=== PATIENT | male | born 1995 | race Caucasian/White ===

== ENCOUNTER 2017-01-31 21:58 | Emergency (ER) | payer SELFPAY ==
[~2017-01-31 21:58] MED LIST: Z.0.NO CURRENT MEDS
[2017-01-31 22:04] VITALS: BP 117/78; PULSE 68; RESP 16; TEMP 97.6; O2SAT 99
[2017-01-31] MEDS ORDERED: ONDANSETRON HCL 4 MG/2 ML VIAL ONE (22:19)
[2017-01-31 22:25] VITALS: RESP 16; O2SAT 98
--- NOTE | 2017-01-31 22:26 | PD ---
HPI Chief Complaint: OD/ Ingestion Time Seen by Provider: 22:17 Travel History International Travel<30 days: No Contact w/Intl Traveler<30days: No Traveled to known affect area: No History of Present Illness HPI 21-year-old male brought in by ambulance after an opioid overdose. The patient was with his friends when he started to become less responsive. EMS was called and they noted that he was minimally responsive to painful stimuli, had a respiratory rate of 8, pinpoint pupils. The patient's friends had told the medics that he had taken 30 mg of Roxicodone. They established an IV and administered 0.4 mg of Narcan with significant improvement in mental status. Upon arrival to the emergency department the patient is awake and alert. He is nauseous and is vomiting/dry heaving into an emesis basin. He denies using any other drugs tonight. Denies alcohol use tonight. He denies suicidal or homicidal ideation. He reports that he ingested the Roxicodone tablet. PFS Past Medical History Medical History: Denies Significant Hx ADHD: No Cancer: No Cardiovascular Problems: No Diabetes: No Diminished Hearing: No Psychiatric: No Migraines: Yes (couple times a week) Seizures: No Thyroid Disease: No Ulcer: No Tetanus Vaccination: < 5 Years Influenza Vaccination: Yes Past Surgical History Surgical History: No Previous Surgery Other Surgery: No Social History Alcohol Use: Yes (EVERY WEEKEND) Tobacco Use: Yes (1PPD) Substance Use: Yes (ANYTHING) Allergies-Medications (Allergen,Severity, Reaction): Coded Allergies: No Known Allergies (Unverified , 01/31/17) Reported Meds & Prescriptions Reported Meds & Active Scripts Active No Active Prescriptions or Reported Medications Review of Systems Except as stated in HPI: all other systems reviewed are Neg Physical Exam Narrative GENERAL: Well-developed, well-nourished, awake, alert, retching into an emesis basin, no acute distress. SKIN: Warm and dry. No rash. HEAD: Atraumatic. Normocephalic. EYES: Pupils equal and round. No scleral icterus. No injection or drainage. ENT: No nasal bleeding or discharge. Mucous membranes pink and moist. NECK: Trachea midline. No JVD. No nuchal rigidity. CARDIOVASCULAR: Regular rate and rhythm. RESPIRATORY: No accessory muscle use. Clear to auscultation. Breath sounds equal bilaterally. GASTROINTESTINAL: Abdomen soft, non-tender, nondistended. MUSCULOSKELETAL: No obvious deformities. No clubbing. No cyanosis. No edema. NEUROLOGICAL: Awake and alert. No obvious cranial nerve deficits. Motor grossly within normal limits. Normal speech. PSYCHIATRIC: Appropriate mood and affect; insight and judgment normal. Data Data Last Documented VS Vital Signs Date Time Temp Pulse Resp B/P Pulse Ox O2 Delivery O2 Flow Rate FiO2 01/31/17 22:25 16 98 Room Air 01/31/17 22:04 97.6 68 117/78 Orders Ondansetron Inj (Zofran Inj) (01/31/17 22:19) Complete Blood Count With Diff (01/31/17 22:20) Comprehensive Metabolic Panel (01/31/17 22:20) Iv Access Insert/Monitor (01/31/17 22:20) Ecg Monitoring (01/31/17 22:20) Oximetry (01/31/17 22:20) Sodium Chloride 0.9% Flush (Ns Flush) (01/31/17 22:30) Drug Screen, Random Urine (01/31/17 22:20) Alcohol (Ethanol) (01/31/17 22:20) Salicylates (Aspirin) (01/31/17 22:20) Tylenol (Acetaminophen) (01/31/17 22:20) Ondansetron Inj (Zofran Inj) (01/31/17 22:30) Potassium Chloride (Kcl) (01/31/17 23:15) Labs Laboratory Tests Test 01/31/17 01/31/17 22:25 23:30 White Blood Count 12.5 TH/MM3 Red Blood Count 4.80 MIL/MM3 Hemoglobin 14.4 GM/DL Hematocrit 41.7 % Mean Corpuscular Volume 86.9 FL Mean Corpuscular Hemoglobin 30.0 PG Mean Corpuscular Hemoglobin 34.6 % Concent Red Cell Distribution Width 12.6 % Platelet Count 263 TH/MM3 Mean Platelet Volume 7.2 FL Neutrophils (%) (Auto) 73.9 % Lymphocytes (%) (Auto) 18.2 % Monocytes (%) (Auto) 6.5 % Eosinophils (%) (Auto) 1.1 % Basophils (%) (Auto) 0.3 % Neutrophils # (Auto) 9.2 TH/MM3 Lymphocytes # (Auto) 2.3 TH/MM3 Monocytes # (Auto) 0.8 TH/MM3 Eosinophils # (Auto) 0.1 TH/MM3 Basophils # (Auto) 0.0 TH/MM3 CBC Comment DIFF FINAL Differential Comment Sodium Level 141 MEQ/L Potassium Level 3.2 MEQ/L Chloride Level 102 MEQ/L Carbon Dioxide Level 29.6 MEQ/L Anion Gap 9 MEQ/L Blood Urea Nitrogen 19 MG/DL Creatinine 1.00 MG/DL Estimat Glomerular Filtration 96 ML/MIN Rate Random Glucose 105 MG/DL Calcium Level 8.4 MG/DL Total Bilirubin 0.2 MG/DL Aspartate Amino Transf 23 U/L (AST/SGOT) Alanine Aminotransferase 24 U/L (ALT/SGPT) Alkaline Phosphatase 111 U/L Total Protein 7.2 GM/DL Albumin 4.0 GM/DL Salicylates Level 2.5 MG/DL Acetaminophen Level LESS THAN 2.0 MCG/ML Ethyl Alcohol Level LESS THAN 3 MG/DL Urine Opiates Screen NEG Urine Barbiturates Screen NEG Urine Amphetamines Screen NEG Urine Benzodiazepines Screen NEG Urine Cocaine Screen NEG Urine Cannabinoids Screen NEG MDM Medical Decision Making Medical Screen Exam Complete: Yes Emergency Medical Condition: Yes Differential Diagnosis Opioid overdose, coingestion, alcohol intoxication, metabolic abnormality, intracranial abnormality unlikely Narrative Course Vital signs are within normal limits. CBC is unremarkable. CMP is remarkable for potassium 3.2, otherwise unremarkable. Alcohol, Tylenol, and salicylate levels are negative. Urine drug screen is negative. Patient was observed in the emergency department 2 hours after arrival. He arrived awake and alert. After 2 hours he is still awake and alert. His girlfriend is now here and tells me she will be able to take him home. He states he is feeling much better and would like to be discharged home. He was counseled on the dangers of opioid overdose. He is stable for discharge home. PMD follow-up this week. He was informed on when to return to the emergency department. He verbalizes understanding and agreement with plan. Diagnosis Primary Impression: Opioid overdose Qualified Code: T40.2X1A - Opioid overdose, accidental or unintentional, initial encounter Additional Impression: Hypokalemia Referrals: Primary Care Physician 3 days Additional Instructions: Follow-up with a primary care physician this week. Return to the emergency department for worsening symptoms or any other concerns. Scripts No Active Prescriptions or Reported Meds Disposition: DISCHARGE HOME Condition: Stable Evelio Cosby MD Jan 31, 2017 22:26
[2017-01-31] MEDS ORDERED: ONDANSETRON HCL 4 MG/2 ML VIAL IV PUSH ONE (22:30)
[2017-01-31] MEDS ORDERED: SODIUM CHLORIDE 0.9% FLUSH 5 ML FLUSH IVF PRN (22:30)
[2017-01-31 22:46] LABS: AUTOMATED NEUTROPHIL # 9.2 TH/MM3 (1.8-7.7); BASOPHIL % 0.3 % (0.0-2.0); EOSINOPHIL # 0.1 TH/MM3 (0-0.4); EOSINOPHIL % 1.1 % (0.0-4.0); HEMATOCRIT 41.7 % (39.0-51.0); HEMO FLAGS DIFF FINAL; LYMPH % 18.2 % (9.0-44.0); LYMPHOCYTE # 2.3 TH/MM3 (1.0-4.8); MEAN CELL VOLUME 86.9 FL (80.0-100.0); MEAN CORPUSCULAR HGB CONC 34.6 % (32.0-36.0); MONO % 6.5 % (0.0-8.0); NEUT % 73.9 % (16.0-70.0); PLATELET COUNT 263 TH/MM3 (150-450); RED CELL DISTRIBUTION WIDTH 12.6 % (11.6-17.2); WHITE BLOOD COUNT 12.5 TH/MM3 (4.0-11.0)
[2017-01-31 22:58] LABS: ALT (GPT) 24 U/L (9-52); ANION GAP 9 MEQ/L (5-15); AST (GOT) 23 U/L (15-39); BICARBONATE 29.6 MEQ/L (21.0-32.0); BLOOD UREA NITROGEN 19 MG/DL (7-18); CHLORIDE 102 MEQ/L (98-107); GLOMERULAR FILTRATION RATE 96 ML/MIN (>89); POTASSIUM 3.2 MEQ/L (3.5-5.1); SODIUM (NA) 141 MEQ/L (136-145)
[2017-01-31 23:00] LABS: ACETAMINOPHEN LESS THAN 2.0 MCG/ML (10.0-30.0); ALKALINE PHOSPHATASE 111 U/L (45-117); TOTAL BILIRUBIN ADULT 0.2 MG/DL (0.2-1.0)
[2017-01-31] MEDS ORDERED: POTASSIUM CHLORIDE 20 MEQ CONTROLLED RELEASE TAB PO ONE (23:15)
[2017-01-31 23:45] LABS: AMPHETAMINE, URINE NEG (NEG); BARBITURATES, URINE NEG (NEG); COCAINE, URINE NEG (NEG)
[2017-02-01 00:38] VITALS: BP 129/68; TEMP 98.5
== END 2017-02-01 00:43 | disposition home or self-care (01) ==
LOC: NEPA 21:58
DX: T40.2X1A Poisoning by other opioids, accidental (unintentional), initial encounter (principal); E87.6 Hypokalemia; Y92.9 Unspecified place or not applicable
CPT/HCPCS: 80053; 80307; 85025; 96374; 99284; J2405